=== PATIENT | female | born 1975 | race Caucasian/White ===

== ENCOUNTER → 2016-08-27 | Outpatient (CLI) | payer BC ==
[2015-09-06 17:06] VITALS: BP 146/93
[~2016-08-27] MED LIST: ALPR0.5T PO; AMOX1TAB10 PO; AMOX1TAB61 PO; DOCU-27 PO; HYDR12.58 PO; NORE0.352 PO; OXYC1TAB7 PO; SERT100T8 PO; [UNRECOGNIZED DRUG - CODE] PO
--- NOTE | 2016-08-27 13:05 | KCIC ---
Examination: Three views of the right foot. HISTORY History of right foot pain for 2 weeks. COMPARISON None available Findings: The alignment of the tarsal bones grossly appears unremarkable. The alignment of the metatarsal phalangeal joints grossly appears unremarkable. There is no acute fracture or dislocation identified. Impression : No acute osseous findings. Electronically signed by: Carlitos Renteria (Aug 27, 2016 13:04:30)
== END | disposition home or self-care (01) ==
LOC: KCIC 12:04
PROVIDERS: ATTEND Nurse Practitioner Family
DX: M79.671 Pain in right foot (principal)
CPT/HCPCS: 73630